=== PATIENT | female | born 1955 | race Caucasian/White ===

== ENCOUNTER 2020-04-14 08:40 | Emergency (ER) | payer MEDICARE, OTHER ==
[2020-04-14] MEDS ORDERED: Aspirin 81 MG Tab.Chew PO STA (09:22)
[2020-04-14] MEDS: Nitroglycerin 0.4 MG Tab.SL SL STA ×2 (09:35→10:30)
[2020-04-14] MEDS ORDERED: Heparin Sodium 5,000 Units/ML Vial IVPUSH ONE (09:52)
--- NOTE | 2020-04-14 09:52 | EDM.PDOC ---
ED HPI GENERAL MEDICAL PROBLEM - General Chief Complaint: Chest Pain Stated Complaint: CHEST PAIN Time Seen by Provider: 04/14/20 08:45 Source of Information: Reports: Patient History Limitations: Reports: No Limitations - History of Present Illness INITIAL COMMENTS - FREE TEXT/NARRATIVE: Patient presented to the ED because of and intermittent chest pain after exercising this morning. The pain is sharp,5/10, denies any nausea,vomiting or diaphoresis. There is no fever,chills, coughing or dyspnea. She has a h/o HTN,Dyslipidemia. and hypothyroidism. - Related Data Allergies Allergy/AdvReac Type Severity Reaction Status Date / Time No Known Allergies Allergy Verified 04/14/20 09:14 ED ROS GENERAL - Review of Systems Review Of Systems: See Below Constitutional: Reports: No Symptoms HEENT: Reports: No Symptoms Respiratory: Reports: No Symptoms Cardiovascular: Reports: Chest Pain Endocrine: Reports: No Symptoms GI/Abdominal: Reports: No Symptoms : Reports: No Symptoms Musculoskeletal: Reports: No Symptoms Skin: Reports: No Symptoms ED EXAM, GENERAL - Physical Exam Exam: See Below Exam Limited By: No Limitations General Appearance: Alert, No Apparent Distress Ears: Normal External Exam, Normal Canal Nose: Normal Inspection, Normal Mucosa, No Blood Throat/Mouth: Normal Inspection, Normal Lips, Normal Teeth Head: Atraumatic, Normocephalic Neck: Normal Inspection, Supple, Non-Tender Respiratory/Chest: No Respiratory Distress, Lungs Clear, Normal Breath Sounds Cardiovascular: Normal Peripheral Pulses, Regular Rate, Rhythm, No Edema, No Gallop GI/Abdominal: Normal Bowel Sounds, Soft, Non-Tender, No Organomegaly Back Exam: Normal Inspection, Full Range of Motion Course - Vital Signs Text/Narrative:: Labs/EKG/CXR was discussed with patient ASA 324 mg po x1 NTG 0.4 mg SL x 1 and she is chest pain free Heparin bolus 4000 U IV Heparin drip at 1000 U /hr NS @ 125 ml /hr Case discussed with Dr Gray who agreed with the above treatment Last Recorded V/S: Last Vital Signs Temp 36.2 C 04/14/20 08:40 Pulse 60 04/14/20 08:40 Resp 18 04/14/20 08:40 BP 148/64 H 04/14/20 09:35 Pulse Ox 98 04/14/20 08:40 - Orders/Labs/Meds Orders: Active Orders 24 hr Category Date Time Status Chest 1V Frontal [CR] Stat Exams 04/14/20 10:09 Ordered Heparin Sodium/0.45% NaCl [Heparin 25,000 Units in 1/2 Med 04/14/20 09:53 Ord ered NS 500 ML] 500 ml IV ASDIRECTED Sodium Chloride 0.9% [Normal Saline] 1,000 ml Med 04/14/20 10:00 Active IV ASDIRECTED Medication Orders Heparin Sodium/Sodium Chloride (Heparin 25,000 Units In 1/2 Ns 500 Ml) 500 mls @ 20 mls/hr IV ASDIRECTED CANDIS Last Admin: 04/14/20 10:02 Dose: 20 mls/hr Documented by: Sodium Chloride (Normal Saline) 1,000 mls @ 125 mls/hr IV ASDIRECTED CANDIS Last Admin: 04/14/20 10:01 Dose: 125 mls/hr Documented by: Labs: Laboratory Tests 04/14/20 04/14/20 04/14/20 Range/Units 09:00 09:00 09:00 WBC 9.6 (3.0-10.3) x10-3/uL RBC 5.03 (3.60-5.20) x10(6)uL Hgb 14.7 (11.4-15.5) g/dL Hct 44.7 (34.2-48.2) % MCV 89.0 (76.7-100.5) fL MCH 29.3 (23.9-33.9) pg MCHC 32.9 (31.9-34.8) g/dL RDW 15.2 (12.3-16.5) % Plt Count 245 (151-488) x10(3)uL MPV 8.5 (7.1-12.4) fL Neut % (Auto) 56.0 (30.8-76.2) % Lymph % (Auto) 33.5 (18.4-52.1) % [place] % (Auto) 7.1 (4.4-15.7) % Eos % (Auto) 3.0 (0.6-8.1) % Baso % (Auto) 0.4 (0.2-1.5) % Neut # (Auto) 5.4 (1.5-6.3) x10-3/uL Lymph # (Auto) 3.2 (1.0-4.4) x10-3/uL [place] # (Auto) 0.7 (0.3-1.0) x10-3/uL Eos # (Auto) 0.3 (0.0-0.8) x10-3/uL Baso # (Auto) 0.0 (0.0-0.1) x10-3/uL PT (9.0-11.1) sec INR (1.00-1.24) APTT (24.4-33.2) SECONDS D-Dimer, Quantitative (0.0-0.59) mg/LFEU Sodium 141 (135-145) mmol/L Potassium 4.6 (3.5-5.3) mmol/L Chloride 104 (100-110) mmol/L Carbon Dioxide 27 (21-32) mmol/L BUN 18 (7-18) mg/dL Creatinine 1.2 H (0.55-1.02) mg/dL Est Cr Clr Drug Dosing TNP Estimated GFR (MDRD) 45 L (>60) BUN/Creatinine Ratio 15.0 (9-20) Glucose 137 H (80-116) mg/dL Calcium 9.0 (8.6-10.2) mg/dL Total Bilirubin 1.1 (0.1-1.3) mg/dL AST 24 (5-25) IU/L ALT 22 (12-36) U/L Alkaline Phosphatase 86 (56-112) IU/L Troponin I 1273.8 H* (4.0-60.3) pg/mL Total Protein 7.6 (6.0-8.0) g/dL Albumin 3.9 (3.2-4.6) g/dL Globulin 3.7 g/dL Albumin/Globulin Ratio 1.1 04/14/20 Range/Units 09:00 WBC (3.0-10.3) x10-3/uL RBC (3.60-5.20) x10(6)uL Hgb (11.4-15.5) g/dL Hct (34.2-48.2) % MCV (76.7-100.5) fL MCH (23.9-33.9) pg MCHC (31.9-34.8) g/dL RDW (12.3-16.5) % Plt Count (151-488) x10(3)uL MPV (7.1-12.4) fL Neut % (Auto) (30.8-76.2) % Lymph % (Auto) (18.4-52.1) % [place] % (Auto) (4.4-15.7) % Eos % (Auto) (0.6-8.1) % Baso % (Auto) (0.2-1.5) % Neut # (Auto) (1.5-6.3) x10-3/uL Lymph # (Auto) (1.0-4.4) x10-3/uL [place] # (Auto) (0.3-1.0) x10-3/uL Eos # (Auto) (0.0-0.8) x10-3/uL Baso # (Auto) (0.0-0.1) x10-3/uL PT 10.4 (9.0-11.1) sec INR 0.96 L (1.00-1.24) APTT 26.4 (24.4-33.2) SECONDS D-Dimer, Quantitative 0.39 (0.0-0.59) mg/LFEU Sodium (135-145) mmol/L Potassium (3.5-5.3) mmol/L Chloride (100-110) mmol/L Carbon Dioxide (21-32) mmol/L BUN (7-18) mg/dL Creatinine (0.55-1.02) mg/dL Est Cr Clr Drug Dosing Estimated GFR (MDRD) (>60) BUN/Creatinine Ratio (9-20) Glucose (80-116) mg/dL Calcium (8.6-10.2) mg/dL Total Bilirubin (0.1-1.3) mg/dL AST (5-25) IU/L ALT (12-36) U/L Alkaline Phosphatase (56-112) IU/L Troponin I (4.0-60.3) pg/mL Total Protein (6.0-8.0) g/dL Albumin (3.2-4.6) g/dL Globulin g/dL Albumin/Globulin Ratio Meds: Medications Generic Name Dose Route Start Last Admin Trade Name Freq PRN Reason Stop Dose Admin Heparin Sodium/Sodium Chloride 500 mls @ 20 mls/hr 04/14/20 09:53 04/14/20 10:02 Heparin 25,000 Units In 1/2 Ns 500 Ml IV 20 mls/hr ASDIRECTED CANDIS Administration Sodium Chloride 1,000 mls @ 125 mls/hr 04/14/20 10:00 04/14/20 10:01 Normal Saline IV 125 mls/hr ASDIRECTED CANDIS Administration Discontinued Medications Generic Name Dose Route Start Last Admin Trade Name Marva PRN Reason Stop Dose Admin Aspirin 324 mg 04/14/20 09:22 04/14/20 09:56 Aspirin PO 04/14/20 09:23 Not Given NOW STA Heparin Sodium (Porcine) 4,000 units 04/14/20 09:52 04/14/20 10:00 Heparin Sodium IVPUSH 04/14/20 09:53 4,000 units .BOLUS ONE Administration Nitroglycerin 0.4 mg 04/14/20 09:22 04/14/20 09:35 Nitrostat SL 04/14/20 09:23 0.4 mg NOW STA Administration Departure - Departure Time of Disposition: 10:30 Disposition: DC/Tfer to Acute Hospital 02 Reason for Transfer *Q: Primary PCI Indicated Condition: Good Clinical Impression: NSTEMI (non-ST elevated myocardial infarction) Instructions: Heart Attack, [id number] Referrals: Dayana Paez PA [Primary Care Provider] - Forms: ED Department Discharge Sepsis Event Note (ED) - Evaluation Sepsis Screening Result: No Definite Risk - Focused Exam Vital Signs: Vital Signs Temp Pulse Resp BP BP Pulse Ox 04/14/20 09:35 148/64 H 04/14/20 08:40 36.2 C 60 18 159/84 H 98 - My Orders Last 24 Hours: My Active Orders 04/14/20 09:53 Heparin Sodium/0.45% NaCl [Heparin 25,000 Units in 1/2 NS 500 ML] 500 ml IV ASDIRECTED 04/14/20 10:00 Sodium Chloride 0.9% [Normal Saline] 1,000 ml IV ASDIRECTED 04/14/20 10:09 Chest 1V Frontal [CR] Stat - Assessment/Plan Last 24 Hours: My Active Orders 04/14/20 09:53 Heparin Sodium/0.45% NaCl [Heparin 25,000 Units in 1/2 NS 500 ML] 500 ml IV ASDIRECTED 04/14/20 10:00 Sodium Chloride 0.9% [Normal Saline] 1,000 ml IV ASDIRECTED 04/14/20 10:09 Chest 1V Frontal [CR] Stat
[2020-04-14] MEDS ORDERED: Heparin Sodium/0.45% NaCl 500 ML IV SCH (09:53)
[2020-04-14] MEDS ORDERED: Sodium Chloride 0.9% 1,000 ML IV SCH (10:00)
[2020-04-14] MEDS ORDERED: Nitroglycerin 0.4 MG Tab.SL SL STA (10:24)
--- NOTE | 2020-04-14 10:52 | CR ---
INDICATION: Chest pain since Tuesday. CHEST, ONE VIEW: Portable AP upright view of the chest was obtained 04/14/20 - no comparisons. The heart did not appear grossly enlarged. The aorta is somewhat tortuous. Overlying EKG leads are noted. Exogenous obesity is suggested. An active infiltrate or effusion was not identified. IMPRESSION: No acute process. MTDD
== END 2020-04-14 11:05 ==
LOC: FB.ED 08:40
DX: I21.4 Non-ST elevation (NSTEMI) myocardial infarction (principal); I10 Essential (primary) hypertension
CPT/HCPCS: 36415; 71045; 80053; 84484; 85025; 85379; 85610; 85730; 93005; 96365; 99285-25; A9270-GY; J1644; J7030